=== PATIENT | male | born 1950 | race Hispanic/Latino ===

== ENCOUNTER 2018-03-15 16:26 | Emergency (ER) | payer MEDICARE, BC ==
[2018-03-15 17:18] LABS: #Basophils 0.1 thou/uL (0.0-0.2); #Lymphocytes 0.9 thou/uL (1.20-3.40); #Monocytes 0.5 thou/uL (0.11-0.59); %Basophils 0.8 % (0.0-1.0); %Eosinophils 0.1 % (0.0-10.0); %Lymphocytes 10.9 % (21.0-51.0); %Monocytes 6.1 % (0.0-10.0); %Neutrophils 82.1 % (42.0-75.0); Hemoglobin 14.6 g/dL (14.0-18.0); Mean Corpuscular HGB CONC 35.5 g/dL (32.0-36.0); Mean Corpuscular Hemoglobin 33.2 pg (27.0-31.0); Mean Corpuscular Volume 93.5 fL (78.0-98.0); Mean Platelet Volume 8.9 fL (7.4-10.4); Platelet Count 162 thou/uL (130-400); RBC Distribution Width 11.7 % (11.5-14.5); White Blood Cell (WBC) Count 8.6 thou/uL (4.8-10.8)
[2018-03-15 17:31] LABS: ALT (SGPT) 17 U/L (8-55); AST (SGOT) 21 U/L (5-34); Albumin 4.2 g/dL (3.4-4.8); Alkaline Phosphatase 77 U/L (40-150); Anion Gap 13 mmol/L (10-20); BUN (Urea Nitrogen) 21 mg/dL (8.4-25.7); Bilirubin, Total 0.4 mg/dL (0.2-1.2); CK (CPK) 96 U/L (30-200); Calc. Creatinine Clearance 0 mL/min (70-130); Calcium 11.1 mg/dL (7.8-10.44); Carbon Dioxide 28 mmol/L (23-31); Chloride 101 mmol/L (98-107); Estimated GFR-MDRD 59; Globulin 3.3 g/dL (2.4-3.5); Glucose 143 mg/dL (80-115); Lipase 32 U/L (8-78); Potassium 3.5 mmol/L (3.5-5.1); Protein, Total 7.5 g/dL (5.8-8.1); Sodium 138 mmol/L (136-145)
[2018-03-15 17:32] LABS: CKMB 1.8 ng/mL (0-6.6); Troponin I 0.022 ng/mL (< 0.028)
[2018-03-15 18:28] LABS: Bilirubin Negative (Negative); Blood, Urine Negative (Negative); Glucose, Urine (Dipstick) 100 mg/dL (Negative); Leukocyte Negative (Negative); Nitrite Negative (Negative); Protein, Urine (Dipstick) > or equal to 300 mg/dL (Neg-Trace); Specific Gravity, Urine 1.025 (1.005-1.030); Urobilinogen 0.2 mg/dL (0.2-1.0); pH, Urine 7.5 (5.0-9.0)
[2018-03-15 18:29] LABS: Clarity Cloudy (Clear)
[2018-03-15] MEDS ORDERED: Mag-Al Plus 1200 MG/1200 MG/120 MG/30 ML UDCUP ONE (18:31)
[2018-03-15] MEDS ORDERED: Lidocaine Viscous Sol 2% 15 ml UD Cup ONE (18:31)
--- NOTE | 2018-03-15 18:38 | RAD ---
AP VIEW CHEST: 03/15/18 HISTORY: Cough. AP view chest obtained on 03/15/18. Comparison made to previous exam from 11/30/15. AP view chest demonstrates mild pulmonary vascular congestion. The lungs are well aerated. No evidenc e of acute intrathoracic abnormality seen. No evidence of effusions, pneumonia or pneumothorax seen. IMPRESSION: Unremarkable AP view chest. POS: [facility]
[2018-03-15 18:39] LABS: RBC/HPF None Seen HPF (0-3); Squamous Epithelial 0-3 HPF (0-3); WBC/HPF None Seen HPF (0-3)
[2018-03-15 18:40] LABS: Bacteria/HPF 1+ HPF (None Seen); Crystals/HPF 2+ AMORPH PHOS HPF (Negative)
[2018-03-15] MEDS ORDERED: Morphine 4 MG/ML VIAL ONE (19:01)
--- NOTE | 2018-03-15 20:00 | CT ---
NONCONTRAST ENHANCED CT IMAGES ABDOMEN AND PELVIS: 03/15/18 HISTORY: Epigastric pain. Noncontrast enhanced CT images of the abdomen and pelvis obtained. The lung bases demonstrate a small granuloma in the left lower lobe. No other pulmonary parenchymal lesions seen. No evidence of free intraperitoneal air seen. The liver and spleen are unremarkable. The gallbladder and pancreas unremarkable. Adrenal glands and kidneys unremarkable. No evidence of renal calcificatio ns or masses or lesions seen. Some atherosclerotic calcifications seen in the superior mesenteric artery. No evidence of periaortic lymphadenopathy seen. A normal appendix is seen. The small bowel is unremarkable. Descending colonic diverticulosis is pres ent without evidence of obvious diverticulitis. Osseous structures are unremarkable. Some changes of spondylosis seen in the lower lumbar facet joints. IMPRESSION: No significant evidence of intra-abdominal or pelvic pathology seen. POS: [facility]
== END 2018-03-15 18:56 | disposition home or self-care (01) ==
LOC: SCSER 16:26
DX: R10.13 Epigastric pain (principal); I10 Essential (primary) hypertension
CPT/HCPCS: 36415; 71045; 74176; 80053; 81003; 81015; 82553; 83605; 83690; 84484; 85025; 93005; 96372; J2270

== ENCOUNTER 2018-07-26 07:00 | Outpatient (CLI) | payer MEDICARE, BC ==
[2018-07-26 07:42] LABS: ALT (SGPT) 15 U/L (8-55); AST (SGOT) 22 U/L (5-34); Albumin 4.1 g/dL (3.4-4.8); Alkaline Phosphatase 66 U/L (40-150); Anion Gap 13 mmol/L (10-20); BUN (Urea Nitrogen) 17 mg/dL (8.4-25.7); Bilirubin, Total 0.4 mg/dL (0.2-1.2); Calc. Creatinine Clearance 0 mL/min (70-130); Calcium 10.1 mg/dL (7.8-10.44); Carbon Dioxide 26 mmol/L (23-31); Cardiac Risk 2.5 (Less than 4.5); Chloride 106 mmol/L (98-107); Cholesterol 191 mg/dl (< 200 Desired); Estimated GFR-MDRD 59; Globulin 2.9 g/dL (2.4-3.5); Glucose 92 mg/dL (80-115); HDL Cholesterol 76 mg/dL (>60 Neg Risk); LDL Cholesterol, Calculated 97 mg/dL; Potassium 3.7 mmol/L (3.5-5.1); Sodium 141 mmol/L (136-145); Triglycerides 91 mg/dL (Less than 150)
[2018-07-26 08:00] LABS: Bilirubin Negative (Negative); Blood, Urine Negative (Negative); Clarity Clear (Clear); Glucose, Urine (Dipstick) Negative (Negative); Leukocyte Negative (Negative); Nitrite Negative (Negative); Protein, Urine (Dipstick) 100 mg/dL (Neg-Trace); Specific Gravity, Urine 1.015 (1.005-1.030); Urobilinogen 0.2 mg/dL (0.2-1.0)
[2018-07-26 08:58] LABS: #Basophils 0.1 thou/uL (0.0-0.2); #Eosinphils 0.1 thou/uL (0.0-0.7); #Lymphocytes 1.4 thou/uL (1.20-3.40); #Monocytes 0.7 thou/uL (0.11-0.59); #Neutrophils 3.5 thou/uL (1.40-6.50); %Basophils 1.2 % (0.0-1.0); %Eosinophils 2.3 % (0.0-10.0); %Lymphocytes 24.5 % (21.0-51.0); %Monocytes 11.4 % (0.0-10.0); %Neutrophils 60.5 % (42.0-75.0); Hemoglobin 14.8 g/dL (14.0-18.0); Mean Corpuscular HGB CONC 32.7 g/dL (32.0-36.0); Mean Corpuscular Hemoglobin 32.2 pg (27.0-31.0); Mean Corpuscular Volume 98.6 fL (78.0-98.0); Mean Platelet Volume 9.8 fL (7.4-10.4); Platelet Count 151 thou/uL (130-400); RBC Distribution Width 12.8 % (11.5-14.5); White Blood Cell (WBC) Count 5.8 thou/uL (4.8-10.8)
[2018-07-26 10:13] LABS: Iron 102 ug/dL (65-175); Iron Binding Capacity, Total 269 mcg/dL (261-462)
[2018-07-26 10:22] LABS: Bacteria/HPF None Seen HPF (None Seen); Hyaline Casts/LPF NONE SEEN LPF (0-3 Hyaline); RBC/HPF None Seen HPF (0-3); Squamous Epithelial None Seen HPF (0-3); WBC/HPF None Seen HPF (0-3)
[2018-07-26 11:27] LABS: Creatinine, Urine 50.96 mg/dL (63-166); Microalbumin Urine 28.3 mg/dL (0.5-50.0); Microalbumin/Creat Ratio 555.3 mg/g (Less than 30)
== END 2018-07-26 07:01 ==
LOC: SCSLAB 07:00
PROVIDERS: ATTEND Family Medicine
DX: N18.4 Chronic kidney disease, stage 4 (severe) (principal); D63.1 Anemia in chronic kidney disease; E78.2 Mixed hyperlipidemia; N06.2 Isolated proteinuria with diffuse membranous glomerulonephritis; N04.2 Nephrotic syndrome with diffuse membranous glomerulonephritis
CPT/HCPCS: 36415; 80053; 80061; 81001; 82043; 83540; 83550; 85025